=== PATIENT | female | born 1935 | race Two or more races ===

== ENCOUNTER 2018-03-19 14:14 | Emergency (ER) | payer MEDICARE, MEDICAID ==
[~2018-03-19] VITALS: Ht 147.3 cm; Wt 56.2 kg
--- NOTE | 2018-03-19 14:32 | NUR ---
BIB DAUGHTER C/O HYPERTENSION AND HEADACHE PER PATIENT SHE FELL 1 WEEK AGO AND HIT HER HEAD BUT NO KO. PT AAOX4, DENIES CP, SOB, DIZZINESS, N/V, WEAKNESS/TINGLING SENSATION @ THIS TIME. 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 AWAITING EVAL BY MD/PA. WILL CONT TO MONITOR.
--- NOTE | 2018-03-19 15:04 | NUR ---
PT AMB WITH WALKER TO BR FOR URINE SAMPLE. PT SB WELL.
[2018-03-19] MEDS ORDERED: ONDANSETRON HCL/PF 4 MG/2 ML VIAL ONE (16:00)
[2018-03-19] MEDS ORDERED: IV NS 0.9% 1,000 ML BAG IV ONE (16:00)
[2018-03-19] MEDS ORDERED: ONDANSETRON HCL/PF 4 MG/2 ML VIAL IVP ONE (16:00)
[2018-03-19] MEDS ORDERED: MORPHINE SULFATE INJ 2 MG/ML DISP.SYRIN IV ONE (16:00)
[2018-03-19] MEDS ORDERED: MORPHINE SULFATE INJ 4 MG/ML DISP.SYRIN ONE (16:01)
[2018-03-19 16:05] LABS: BASOPHILS % (AUTO) 0.7 % (0.0-2.0); EOSINOPHILS % (AUTO) 4.1 % (0.0-6.0); HEMATOCRIT 40 % (33-45); HEMOGLOBIN 13.3 g/dL (11.5-14.8); LYMPHOCYTES # (AUTO) 1.6 /CMM (0.8-4.8); MEAN CORPUSCULAR HGB CONC 34 g/dl (31.0-36.0); MEAN CORPUSCULAR VOLUME 94 fL (82-100); MONOCYTES # (AUTO) 0.6 /CMM (0.1-1.30); MONOCYTES % (AUTO) 10.8 % (2.0-12.0); NEUTROPHILS # (AUTO) 2.9 /CMM (1.8-8.9); NEUTROPHILS % (AUTO) 54.4 % (43.0-81.0); PLATELET COUNT (AUTO) 174 /CMM (150-450); RED BLOOD CELL COUNT(AUTO) 4.22 MIL/uL (4.0-5.2); WHITE BLOOD COUNT (AUTO) 5.3 K/uL (4.3-11.0)
--- NOTE | 2018-03-19 16:16 | NUR ---
MEDICATED FOR PAIN PER ERMD ORDER, PT SB WELL. PT TO CT VIA MAKENZIE.
[2018-03-19 16:19] LABS: ALANINE AMINOTRANSFERASE 45 U/L (12-78); ALBUMIN 3.1 g/dL (3.4-5.0); ALKALINE PHOSPHATASE 80 U/L (46-116); ASPARTATE AMINOTRANSFERASE 48 U/L (15-37); BILIRUBIN,DIRECT 0.1 mg/dL (0.0-0.2); BILIRUBIN,TOTAL 0.4 mg/dL (0.2-1.0); CALCIUM, SERUM 8.9 mg/dL (8.5-10.1); CARBON DIOXIDE 31 mmol/L (21-32); CHLORIDE 102 mmol/L (98-107); CREATININE 0.9 mg/dL (0.6-1.3); GLUCOSE 98 mg/dL (74-106); POTASSIUM 3.8 mmol/L (3.5-5.1); SODIUM SERUM 140 mmol/L (136-145); TOTAL PROTEIN, SERUM 7.1 g/dL (6.4-8.2); UREA NITROGEN, BLOOD 13 mg/dL (7-18)
--- NOTE | 2018-03-19 19:25 | NUR ---
Received pt from YOVANA Guevara. pt is here for HTN, headache, hx of hitting her head on the wall a week ago while sleeping. Pt is A, O/4, denies headache at this time. Daughter at BS.
--- NOTE | 2018-03-19 20:50 | NUR ---
Pt's BP still high at 190/67, HR = 57. MD notified.
--- NOTE | 2018-03-19 20:55 | NUR ---
Per , it is ok for the pt to take her own Losartan 100 mg 1 tab PO now. Assisted in medication administration.
--- NOTE | 2018-03-19 21:20 | NUR ---
Assisted pt to BR, ambulated with a walker. Notified of DC order. Pt and daughter agreed
--- NOTE | 2018-03-19 21:30 | NUR ---
Patient discharged to home in stable condition. Written and verbal after care instructions given. Patient and daughter verbalize understanding of instruction.IV removed. Catheter intact and site benign. Pressure and 4x4 applied to site. No bleeding noted.Pt ambulatory with walker.
[2018-03-19 21:31] VITALS: BP 187/79
== END 2018-03-19 21:30 | disposition home or self-care (01) ==
LOC: ER 14:18
DX: R51 Headache (principal); R06.02 Shortness of breath; I10 Essential (primary) hypertension; E78.00 Pure hypercholesterolemia, unspecified; R91.8 Other nonspecific abnormal finding of lung field; G89.29 Other chronic pain; F41.9 Anxiety disorder, unspecified; R00.1 Bradycardia, unspecified; Z87.442 Personal history of urinary calculi
CPT/HCPCS: 36415; 70450-TC; 71045-TC; 80048-TC; 80076-TC; 83880; 84484-TC; 85025-TC; 85730-TC; A4606; A6253; J2270; J2405; J7030; Z7610